=== PATIENT | female | born 1985 | race Caucasian/White ===

== ENCOUNTER 2022-04-23 17:29 | Emergency (ER) | payer SELFPAY ==
[~2022-04-23] VITALS: Ht 162.6 cm; Wt 113.6 kg
[2022-04-23 17:54] VITALS: BP 149/95; TEMP 97.9
[2022-04-23] MEDS ORDERED: CEPHALEXIN500 M1 PO (18:12)
[2022-04-23 18:20] VITALS: PULSE 86
== END 2022-04-23 18:20 | disposition home or self-care (01) ==
LOC: COL.ER 17:29
DX: I88.9 Nonspecific lymphadenitis, unspecified (principal)